=== PATIENT | male | born 1950 | race Caucasian/White ===

== ENCOUNTER → 2023-05-22 12:49 | Outpatient (REF) | payer MEDICARE, OTHER, SELFPAY ==
[2023-05-22 13:32] LABS: % Basophils 0.7 % (0-2); % Immature Granulocytes 0.3 % (0-0.5); % Lymphocytes 23.6 % (20.5-51.1); % Monocytes 8.8 % (1.7-9.3); % Neutrophils 64.6 % (42.2-75.2); Absolute Basophils 0.1 10^3/uL (0-0.2); Absolute Eosinophils 0.1 10^3/uL (0-0.7); Absolute Lymphocytes 1.7 10^3/uL (1.2-3.4); Absolute Monocytes 0.6 10^3/uL (0.1-0.6); Absolute Neutrophils 4.5 10^3/uL (1.4-6.5); Hematocrit 44.5 % (39.0-52.0); Hemoglobin 15.6 g/dL (13.0-18.0); Mean Corp Hgb Conc. 35.1 g/dL (33.0-37.0); Mean Corpuscular Hgb 31.4 pg (27.0-31.0); Mean Corpuscular Volume 89.5 fL (80.0-94.0); Mean Platelet Volume 9.4 fL (7.4-10.4); Nucleated Red Blood Cells % 0 % (-); Platelet Count 218 10^3/uL (130-400); Red Blood Cell Count 4.97 10^6/uL (4.70-6.10); Red Cell Dist. Width 13.2 % (11.5-14.5)
[2023-05-22 13:38] LABS: INR 1.12; PT 14.3 Sec (11.4-14.6)
[2023-05-22 13:49] LABS: ALT (SGPT) 43 U/L (0-50); AST (SGOT) 30 U/L (17-59); Albumin 4.3 g/dl (3.5-5.0); Alkaline Phosphatase 76 U/L (38-126); Blood Urea Nitrogen 21 mg/dl (9-20); Calcium 9.5 mg/dl (8.4-10.2); Carbon Dioxide 26 mmol/L (22-30); Chloride 104 mmol/L (98-107); Glucose 85 mg/dl (70-99); Magnesium 2.1 mg/dl (1.6-2.3); Potassium 4.4 mmol/L (3.5-5.1); Sodium 135 mmol/L (135-145); Total Bilirubin 0.7 mg/dl (0.2-1.3); Total Protein 6.8 g/dl (6.3-8.2); eGFR > 60.00
== END ==
LOC: SDSPAT 12:49
PROVIDERS: ATTENDING PHYSICIAN Internal Medicine Cardiovascular Disease; FAMILY PHYSICIAN Family Medicine; OTHER PHYSICIAN Internal Medicine Cardiovascular Disease
DX: Z01.818 Encounter for other preprocedural examination (principal); I48.0 Paroxysmal atrial fibrillation
CPT/HCPCS: 36415; 75572; 80053; 83735; 85025; 85610; 86850; 86900; 86901; Q9967

== ENCOUNTER 2023-06-01 06:07 | Day surgery (SDC) | payer MEDICARE, OTHER, SELFPAY ==
[2023-05-22 12:55] VITALS: BMI 27.9
[2023-06-01] VITALS (46 sets, daily range): BP systolic 78–133; BP diastolic 48–104; BMI 27.2
[2023-06-01 09:21] LABS: ACT-LR - POC 284 Seconds (116-155)
[2023-06-01 09:44] LABS: ACT-LR - POC 292 Seconds (116-155)
[2023-06-01] MEDS: NSS 1000 IV (11:20)
--- NOTE | 2023-06-01 11:20 | PTCARENOTE ---
Pt is post PVI. Pt's blood pressure is decreased from 111/79 to 78/48-91/54. Pt asymptomatic. Pt placed in trendelenberg. Mckenna Gamez NP made aware. IVF's NSS started at 250ml/hr for total of 500 ml over 2 hours as ordered. Will continue to monitor.
--- NOTE | 2023-06-01 11:43 | PTCARENOTE ---
Addendum entered by Martha Do RN 06/01/23 11:43:
EKG given to Mckenna Gamez NP. IVF's remain infusing. Pt remains asymptomatic. No further treatment ordered. Will continue to monitor.
Original Note:
Mckenna Gamez CUSTOMS AND BORDER PROTECTION INSPECTOR at pt bedside to assess pt.
--- NOTE | 2023-06-01 11:58 | PTCARENOTE ---
Pt states his BP at home is as low as 90's/60's to low 100's-120/ 60-80's.
--- NOTE | 2023-06-01 12:21 | PTCARENOTE ---
Pt's heart rate has been dropping to 40's and coming right back up to 50's-60's. Pt asymptomatic. Mckenna Gamez NP made aware. No treatment ordered at this time. Will continue to monitor.
--- NOTE | 2023-06-01 14:56 | W.PN.UPDATE ---
Addendum entered and electronically signed by CONNIE Aleman 06/01/23 16:13:
L groin had small bleed with HT after getting oob, manual pressure held for 15min. Site stable, will monitor for another 30min then oob, if not bleeding, plan for d/c home after 430p
Original Note:
Update Note
Progress Note Update
72 yo WM s/p PVI (same day). He feels good, no cp, sob, francisco diet, voiding, amb w/o dizziness, bp low initially recovered with IVF, b/l groins c/d/i no HT< soft. EKG SR/SB 1deg AVB occ PVC's. He will continue OAC Eliquis dose at home 5pm. He will
decrease atenolol to 50mg daily. Activity restrictions reviewed. He will f/u Dr. Lam in 3 mo. He is for d/c home after 330p.
SUMMARY:�
Complex left atrial mapping and ablation.
Pulmonary vein and extrapulmonary lesions were given during this procedure.� Pulmonary vein isolation with entrance next block in all 4 pulmonary veins.� Left atrial posterior wall isolation with entrance and exit block.� The patient presented in
atypical atrial flutter which was macro reentry around the interatrial fossa involving both posterior right and left atrium, through the interatrial fossa and roof and towards and through the proximal conduction system and in proximal coronary
sinus.� Posterior lesions were given in both atria as well as PFA lesions from the right supra pulm vein down towards the mitral valve annulus for the left atrium.� The patient was noninducible for tachyarrhythmia post procedure.
RECOMMENDATIONS:
1. Admit to monitored bed.
2. Resume anticoagulation
3.� Out of bed 4 hours
4.� If there is any clinical recurrence would consider antiarrhythmic drug therapy or could consider focal RF for PFA in the anteroseptal RA�LA regions if we see recurrence interatrial septal flutter.
Copy to: Dr. Kevin Lam
--- NOTE | 2023-06-01 15:30 | PTCARENOTE ---
Pt ambulated to bathroom at 1515. While urinating, Pt's left groin began bleeding. Pt placed in stretcher and manual pressure applied x 10 minutes. Small hematoma noted as well. Left groin dressing removed after 10 minutes hold. No further bleeding
or hematoma noted. Dry, sterile 4x4 and tegaderm applied. Pt's at pt bedside. Mckenna Gamez COST CLERK made aware. Will continue to monitor.
--- NOTE | 2023-06-01 15:50 | PTCARENOTE ---
Mckenna Gamez CHINESE LANGUAGE PROFESSOR at pt bedside assessing pt.
--- NOTE | 2023-06-01 16:15 | PTCARENOTE ---
Dr Penaloza at pt bedside speaking to pt and pt's .
[2023-06-01] MEDS: ANESTHETIC LOZENGE 1 LOZENGE PO (16:57)
== END 2023-06-01 17:00 | disposition home or self-care (01) ==
LOC: CATH 06:07
PROVIDERS: ATTENDING PHYSICIAN Internal Medicine Cardiovascular Disease; FAMILY PHYSICIAN Family Medicine; OTHER PHYSICIAN Internal Medicine Cardiovascular Disease
DX: I48.19 Other persistent atrial fibrillation (principal); I48.4 Atypical atrial flutter; Z79.01 Long term (current) use of anticoagulants
CPT/HCPCS: C1732; C1894; C1769; C1730; C1892; C1759; C1733; 76937; 85347; 86900; 86901; 93005; 93655; 93656

== ENCOUNTER → 2023-06-16 11:22 | Outpatient (REF) | payer MEDICARE, OTHER, SELFPAY ==
--- NOTE | 2023-06-01 11:05 | ITS.CL.ABL ---
Manager Line - Ablation
Ablation
Procedure Report:
ELECTROPHYSIOLOGY ABLATION STUDY
DATE:: June 01, 2023 REFERRING: Dr. Kevin Lam
INDICATION: Persistent supraventricular tachycardia in the form of atrial fibrillation. Also noted on 1 ECG to have an atypical atrial flutter
HISTORY: See H and P. As above
ANTIARRHYTHMIC DRUG: Atenolol
PRE-PROCEDURE OTTONIEL: No atrial thrombus
PRESENTING RHYTHM: Atrial flutter cycle length 270 ms diagnosed as interatrial septal flutter involving the fossa from both left and right atrium posteriorly and anteriorly
'TIME-OUT': called and confirmed.
SEDATION/ANESTHESIA: provided via the anesthesia department using general anesthesia (LMA).
INTRAVENOUS/ARTERIAL ACCESS:
Right femoral venous - 8Fr
Left femoral venous - 8 Fr, 6 Fr
Ultrasound guidance for bilateral femoral vein access was utilized by me to obtain access with demonstration of normal anatomy
CHADS-VASC Score:
HAS-Bled Score
PROCEDURE:
1. A decapolar CS catheter was placed within the CS for mapping and pacing. This was also used as the reference catheter for the 3-D map. Cycle length was 270 ms. Voltage mapping and activation mapping of the atrial flutter demonstrated
entrainment with PPI equal to tachycardia cycle length from the posteroseptal RA across on the right pulmonary veins, the interatrial septum at the roof and fossa as well as focally from near the AV conduction system and proximal coronary sinus
suggesting macro reentry around the interatrial fossa. There was focal area of low electroanatomic voltage in the interatrial fossa. The CTI, lateral RA, SVC, pulmonary veins, and roof�LA posterior wall were out of the circuit. The mitral annulus
was out of the circuit. We did extrapulmonary vein lesions with the pulse select PFA catheter from the right superior pulmonary vein across the interatrial septum down towards the mitral valve annulus in both the superior and inferior aspects as
well as the posterior septal right atrium with the PFA catheter across from the areas and the interatrial septum. The slowed tachycardia to 310 ms and given the anterior limb involving the proximal conduction system and proximal coronary sinus we
elected to cardiovert the patient to sinus rhythm.
See below but we also performed left atrial posterior wall isolation as well as pulmonary vein isolation and utilized a multipolar catheter demonstrating dense areas of ablation in the interatrial fossa from the left atrium and from the posterior
side of the right atrium after cardioversion. The patient was then noninducible with burst pacing or extrastimuli and no further ablation was performed.
2. The intracardiac ultrasound catheter was positioned in the RA to identify the FO for targeting of transseptal puncture, assist in identification of the pulmonary vein ostia, monitoring pre and post ablation pulmonary vein flow velocities,
monitoring for 'bubble' formation during RF application as a sign of thermal injury, and to monitor for pericardial effusion during mapping and ablation procedure. Left atrial size, LV ejection fraction, and pulmonary vein flows were monitored
pre and post ablation procedure. The other valves were inspected and found to be free of significant regurgitation or stenosis.
3. Half of the calculated heparin bolus was administered prior to the first transeptal puncture. Transseptal puncture was performed to diagnose RA and LA pressure so that safety of LA mapping and ablation could be further assessed, and to access
the left atrium and pulmonary veins for mapping and ablation. This entailed advancing an 12 Maori pulse select sheath with dilator into the superior vena cava and withdrawing both (monitoring intracardiac ultrasound, fluoroscopy and tip pressure)
with the tip oriented toward the atrial septum. The fossa ovalis was engaged (indicated by sudden displacement of the sheath tip as well as tenting of the fossa seen on intracardiac ultrasound). Left atrial access required a pass with the
Brockenbrough needle extended. Left atrial catheter position was confirmed by pressure monitoring (RA mean pressure 8 mm Hg and LA mean pressure 14 mm Hg), LA saturation ( 99 %), as well as fluoroscopy. The sheath was advanced over the dilator
and positioned in the left atrium. The remainder of the calculated heparin bolus was administered and heparin was
infused to maintain ACT at 300 -350 seconds throughout the case.
4. RA pacing was performed via the proximal decapolar poles and LA pacing was performed via the distal decapolr poles.
5. A decapolar catheter was first positioned at the His position for His Bundle recording which was tagged via the 3-D Navex sytem, and then passed to the RVA for RV pacing and recording.
6. The ablation catheter was positioned through one of the transeptal seaths and a 20 pole ring mapping catheter was positioned through the second seath into the LA and then the ostia of the LIPV, LSPV, RSPV and the RIPV.
7. Next, a 3-D map was created using Navex. A 3-D reconstructed CT image was compared to the 3-D Navex map to assist in anatomic interpretation, mapping and ablation. The CT image and the NavX image were fused.
8. Initial pass with the pulse select catheter was made at each of the 4 pulmonary veins plus the posterior wall of the left atrium and extending lesion sets from the right superior pulmonary vein and right inferior pulmonary vein anteriorly
towards the mitral valve annulus to address the patient's atypical atrial flutter. Entrance block was confirmed in all 4 pulmonary veins and the posterior wall and remapping with a multipolar catheter demonstrated a small area of connection at the
anterior ridge of the left inferior and left superior pulmonary veins. The pulsed light catheter was brought back to the left atrium and these areas were addressed further demonstrating entrance and exit block in all 4 pulmonary veins as well as
electrical isolation of the posterior wall from the roof down to the inferior portion. Voltage abnormality from the right superior pulm vein down towards the mitral valve annulus was also documented. After right atrial ablation there was also
electroanatomic scar created in the posterior septal right atrium directly across from the septal areas of the right pulmonary veins. Follow-up EP study with extrastimuli and burst pacing down refractoriness demonstrated no inducible arrhythmia.
9. The patient demonstrated normal sinus node function and AV carlos function post cardioversion.
TOTAL FLOURO TIME: 14.7 minutes 104 mGy
TOTAL RF DURATION: 0 minutes
REVERSAL OF HEPARIN: 35 mg of protamine, slow IV administration
COMPLICATIONS:
None
Intracardiac US shows no pericardial effusion post ablation.
SUMMARY:
Complex left atrial mapping and ablation.
Pulmonary vein and extrapulmonary lesions were given during this procedure. Pulmonary vein isolation with entrance next block in all 4 pulmonary veins. Left atrial posterior wall isolation with entrance and exit block. The patient presented in
atypical atrial flutter which was macro reentry around the interatrial fossa involving both posterior right and left atrium, through the interatrial fossa and roof and towards and through the proximal conduction system and in proximal coronary
sinus. Posterior lesions were given in both atria as well as PFA lesions from the right supra pulm vein down towards the mitral valve annulus for the left atrium. The patient was noninducible for tachyarrhythmia post procedure.
RECOMMENDATIONS:
1. Admit to monitored bed.
2. Resume anticoagulation
3. Out of bed 4 hours
4. If there is any clinical recurrence would consider antiarrhythmic drug therapy or could consider focal RF for PFA in the anteroseptal RA�LA regions if we see recurrence interatrial septal flutter.
Copy to: Dr. Kevin Lam
== END ==
LOC: HWRAD 11:22
PROVIDERS: ATTENDING PHYSICIAN Internal Medicine Cardiovascular Disease; FAMILY PHYSICIAN Family Medicine
DX: E04.1 Nontoxic single thyroid nodule (principal)
CPT/HCPCS: 76536

== ENCOUNTER → 2024-07-17 09:45 | Outpatient (REF) | payer MEDICARE, OTHER, SELFPAY ==
[2024-07-17 10:54] LABS: % Basophils 1.1 % (0-2); % Eosinophils 2.8 % (0-6); % Immature Granulocytes 0.2 % (0-0.5); % Lymphocytes 24.8 % (20.5-51.1); % Monocytes 7.9 % (1.7-9.3); % Neutrophils 63.2 % (42.2-75.2); Absolute Basophils 0.1 10^3/uL (0-0.2); Absolute Eosinophils 0.2 10^3/uL (0-0.7); Absolute Lymphocytes 1.3 10^3/uL (1.2-3.4); Absolute Monocytes 0.4 10^3/uL (0.1-0.6); Absolute Neutrophils 3.4 10^3/uL (1.4-6.5); Hematocrit 43.9 % (39.0-52.0); Hemoglobin 15.2 g/dL (13.0-18.0); Mean Corp Hgb Conc. 34.6 g/dL (33.0-37.0); Mean Corpuscular Hgb 31.3 pg (27.0-31.0); Mean Corpuscular Volume 90.5 fL (80.0-94.0); Nucleated Red Blood Cells % 0 % (-); Platelet Count 171 10^3/uL (130-400); Red Blood Cell Count 4.85 10^6/uL (4.70-6.10); Red Cell Dist. Width 13.7 % (11.5-14.5); White Blood Cell Count 5.3 10^3/uL (4.8-10.8)
[2024-07-17 10:55] LABS: PT 14.8 Sec (11.4-14.6)
[2024-07-17 11:15] LABS: ALT (SGPT) 32 U/L (0-50); AST (SGOT) 29 U/L (17-59); Albumin 4.3 g/dl (3.5-5.0); Alkaline Phosphatase 74 U/L (38-126); Blood Urea Nitrogen 19 mg/dl (9-20); Calcium 9.7 mg/dl (8.4-10.2); Carbon Dioxide 27 mmol/L (22-30); Chloride 104 mmol/L (98-107); Glucose 94 mg/dl (70-99); Magnesium 2.1 mg/dl (1.6-2.3); Potassium 4.8 mmol/L (3.5-5.1); Sodium 139 mmol/L (135-145); Total Protein 6.7 g/dl (6.3-8.2); eGFR > 60.00
== END ==
LOC: SDSPAT 09:45
PROVIDERS: ATTENDING PHYSICIAN Internal Medicine Cardiovascular Disease; FAMILY PHYSICIAN Family Medicine; OTHER PHYSICIAN Internal Medicine Cardiovascular Disease
DX: I48.0 Paroxysmal atrial fibrillation (principal)
CPT/HCPCS: 36415; 80053; 83735; 85025; 85610; 86850; 86900; 86901; 93005

== ENCOUNTER 2024-08-15 05:58 | Day surgery (SDC) | payer MEDICARE, OTHER, SELFPAY ==
[2024-07-17 10:13] VITALS: BMI 28.1
[2024-08-15] VITALS (15 sets, daily range): BP systolic 79–140; BP diastolic 52–102; BMI 26.7
[2024-08-15 08:42] LABS: ACT-LR - POC 239 Seconds (116-155)
[2024-08-15 08:59] LABS: ACT-LR - POC 314 Seconds (116-155)
[2024-08-15 09:19] LABS: ACT-LR - POC 274 Seconds (116-155)
--- NOTE | 2024-08-15 09:44 | ITS.CL.ABL ---
Motion Study Engineer - Ablation
Ablation
Procedure Report:
ELECTROPHYSIOLOGY ABLATION STUDY
DATE:: August 15, 2024�����������������������������REFERRING: Dr. Francisco Palencia
INDICATION: Persistent supraventricular tachycardia in the form of atypical atrial flutter. Prior interatrial septal flutter, PVI, left atrial posterior wall isolation in 2023 with pulselike catheter.
HISTORY: See H and P.��As above
ANTIARRHYTHMIC DRUG: Atenolol and verapamil
PRE-PROCEDURE OTTONIEL: No thrombus on intracardiac ultrasound
PRESENTING RHYTHM: Left atrial posterior wall flutter encircling posterior wall scar cycle length to 60 ms documented with entrainment and activation mapping
'TIME-OUT':��called and confirmed.
SEDATION/ANESTHESIA:��provided via the anesthesia department using general anesthesia (LMA).
INTRAVENOUS/ARTERIAL ACCESS:
Right femoral venous - 8Fr
Left femoral venous - 8 Fr, 6 Fr
Ultrasound guidance for bilateral femoral vein access was utilized by me to obtain access with demonstration of normal anatomy
CHADS-VASC Score:
HAS-Bled Score
PROCEDURE:
1.��A decapolar CS catheter was placed within the CS for mapping and pacing.��This was also used as the reference catheter for the 3-D map. CS activation was eccentric earliest at the mid coronary sinus and entrainment from the coronary sinus
catheter proximal distal coronary sinus demonstrated to be out of the circuit. As such we performed transseptal puncture as below and performed activation mapping and entrainment mapping of left atrium. The prior lesion sets around the interatrial
fossa were out of the circuit and there was signal that was not drainable and each of the 4 pulmonary veins was also out of the circuit. There was dense scar in the posterior wall from the mid posterior wall down to the floor but the roof and mid
posterior wall had reconnected. The posterior wall and roof or part of the macro reentrant circuit by activation and entrainment mapping. This likely the remainder of the circuit passed through the posterior wall scar in the inferior and mid
portion and likely a small epicardial portion of the circuit outside the left superior pulmonary vein or the lisa. PPI equal to tachycardia cycle length in the posterior wall and the remainder of the left atrium was out of the circuit. At the
second PFA lesion in the mid posterior wall the tachycardia terminated and was rendered noninducible. We then proceeded to box lesions at the posterior wall and circumferential lesions about both left and right pulmonary veins as described below.
There was dense scar at the interatrial fossa on both the right and left atrial sides from prior lesion set.
2. The intracardiac ultrasound catheter was positioned in the RA to identify the FO for targeting of transseptal puncture, assist��in identification of the pulmonary vein ostia, monitoring pre and post ablation pulmonary vein flow velocities,
monitoring for 'bubble' formation during RF application as a sign of thermal injury,��and to monitor for pericardial effusion during mapping and ablation procedure.���Left atrial size, LV ejection fraction, and pulmonary vein flows were monitored
pre and post ablation procedure. The other valves were inspected and found to be free of significant regurgitation or stenosis.
3.��Half of the calculated heparin bolus was administered prior to the first transeptal puncture.��Transseptal puncture was performed to diagnose RA and LA pressure so that safetey of LA mapping and ablation could be further assessed, and to access
the left atrium and pulmonary veins for mapping and ablation.��This entailed advancing an 8 Fr SL-1 sheath with dilator into the superior vena cava and withdrawing both (monitoring intracardiac ultrasound, fluoroscopy and tip pressure) with the tip
oriented toward the atrial septum.��The fossa ovalis was engaged (indicated by sudden displacement of the sheath tip as well as tenting of the fossa seen on intracardiac ultrasound).��Left atrial access required a pass with the Brockenbrough needle
extended.��Left atrial catheter position was confirmed by pressure monitoring (RA mean pressure [ ] mm Hg and LA mean presure [ ] mm Hg), LA saturation ( [ ] %),��as well as fluoroscopy.��The sheath was advanced over the dilator and positioned in
the left atrium.��This procedure was repeated for the Agilis sheath.��The remainder of the calculated heparin bolus was administered and heparin was
infused to maintain ACT at 300 -350 seconds throughout the case.
4.��RA pacing was performed via the proximal decapolar poles and LA pacing was performed via the distal decapolr poles.
5. A quadrapolar catheter was first positioned at the His position for His Bundle recording which was tagged via the 3-D Navex sytem, and then passed to the RVA for RV pacing and recording.
6. The lattice catheter was placed in each of the LIPV, LSPV, RSPV and the RIPV.��
7.��Next, a 3-D map was created using Navex.���A 3-D reconstructed CT image was compared to the 3-D Navex map to assist in anatomic interpretation, mapping and ablation.��The CT image and the NavX image were fused.
8. Entrance and exit block was confirmed with wide circumferential ablation around the left and right pulmonary veins and the posterior wall including the roof, posterior wall, and floor were isolated with the box lesion set. The box lesions
encompassed a roofline and floor line from right to left veins. After termination of tachycardia, isolation of the posterior wall, and the pulmonary veins EP study with burst atrial pacing down to atrial refractoriness and atrial extrastimuli down
to atrial ERP could not induce any other tachyarrhythmias. As such sheath and catheters removed from the left atrium and voltage mapping of the right atrium was performed.
9. Normal sinus node and AV carlos conduction were noted.
TOTAL FLOURO TIME: 14.1 minutes 183 mGy
TOTAL RF DURATION: 0 minutes
REVERSAL OF HEPARIN: 30 mg of protamine, slow IV administration
COMPLICATIONS:
None
Intracardiac US shows no pericardial effusion post ablation.
SUMMARY:��
Complex left atrial mapping and ablation.
Left atrial posterior wall flutter cycle length 260 ms which was terminated with ablation utilizing the posterior wall and prior dense scar in the inferior portion of the posterior wall towards the left veins. Roof floor line and posterior wall
isolation and circumferential ablation around the left and right pulmonary veins.
RECOMMENDATIONS:
1. Ambulate in 4 hours
2. Resume anticoagulation
3.��Lower atenolol to once daily
4.��Consider same-day discharge
Copy to: Dr. Francisco Palencia
--- NOTE | 2024-08-15 11:00 | PTCARENOTE ---
PT BP RUNNING IN THE 80'S OVER 60'S. NURIA MEDICINE TECHNOLOGIST AWARE. PACU FLUIDS INFUSING PER NURIA MEDICINE TECHNOLOGIST. PT ASYMPTOMATIC. B/L GROINS WITH NO BLEEDING/HEMATOMA NOTED.
--- NOTE | 2024-08-15 15:04 | W.PN.UPDATE ---
Update Note
Progress Note Update
73 yo WM s/p PVI (same day). He denies cp, sob, francisco diet, voiding, amb w/o dizziness, EKG SR 1 deg AVB, b/l groins c/d/i, soft. He will resume Eliquis tonight. He will stop verapamil and decrease atenolol to 25mg twice daily. Activity restrictions
reviewed. He will f/u Dr. Palencia in 3 mo. He is for d/c home after 230p
== END 2024-08-15 14:25 | disposition home or self-care (01) ==
LOC: CATH 05:58
PROVIDERS: ATTENDING PHYSICIAN Internal Medicine Cardiovascular Disease; FAMILY PHYSICIAN Family Medicine; OTHER PHYSICIAN Internal Medicine Cardiovascular Disease
DX: I48.0 Paroxysmal atrial fibrillation (principal); E78.00 Pure hypercholesterolemia, unspecified; I10 Essential (primary) hypertension; I08.1 Rheumatic disorders of both mitral and tricuspid valves; I47.10 Supraventricular tachycardia, unspecified; I49.8 Other specified cardiac arrhythmias; I48.4 Atypical atrial flutter; Z79.01 Long term (current) use of anticoagulants; M19.90 Unspecified osteoarthritis, unspecified site; Z79.1 Long term (current) use of non-steroidal anti-inflammatories (NSAID); Z79.899 Other long term (current) drug therapy; Z86.0100 Personal history of colon polyps, unspecified; Z85.828 Personal history of other malignant neoplasm of skin; Z90.49 Acquired absence of other specified parts of digestive tract; Z90.79 Acquired absence of other genital organ(s); E04.1 Nontoxic single thyroid nodule; N52.9 Male erectile dysfunction, unspecified; G47.00 Insomnia, unspecified
CPT/HCPCS: C1730; C1894; C1766; C1892; C1759; C1733; 85347; 93005; 93655; 93656; 93657